=== PATIENT | female | born 2000 | race African-American/Black ===

== ENCOUNTER 2024-03-10 20:29 | Emergency (ER) | payer OTHER, SELFPAY ==
[2024-03-10 20:40] VITALS: BP 120/74; PULSE 75; RESP 16; TEMP 36.4; O2SAT 98
--- NOTE | 2024-03-10 20:48 | CRLHL7_ITS ---
For Patients: As a result of the Century Cures Act, medical imaging exams and procedure reports are released immediately into your electronic medical record. You may view this report before your referring provider. If you have questions, please contact your health care provider. INDICATION: Ankle pain. COMPARISON: None. TECHNIQUE: Right ankle 3 views. FINDINGS: Mild soft tissue swelling about the ankle. No fracture or dislocation. Ankle mortise is intact. Normal visualized mid and hindfoot. Dictated by Vazquez Noguera MD @ 03/10/2024 11:06:54 PM (Electronically Signed)
--- NOTE | 2024-03-10 20:51 | ED.GENADULT ---
HPI - General Adult General Chief complaint: Extremity Pain/Injury, Lower Stated complaint: R ankle pain Time Seen by Provider: 03/10/24 20:33 History of Present Illness HPI narrative: Patient is a 23-year-old woman who uncertain whether she injured her right ankle. He does unfortunately have pain in the right ankle. She has had no instability but has pain with weight-bearing across the extensor tendons of the superior aspect of the ankle. Nose significant bruising but she does have some mild swelling. No other complaints or concerns patient has had no musculoskeletal complaints before and otherwise been in good health with only mild depression. Related Data Home Medications ?Medication ?Instructions ?Recorded ?Confirmed sertraline 150 mg capsule 150 mg PO DAILY 03/10/24 03/10/24 Allergies Allergy/AdvReac Type Severity Reaction Status Date / Time No Known Drug Allergies Allergy Verified 03/10/24 20:46 Review of Systems Status of ROS: Reports: 10 or more systems reviewed and unremarkable except as noted in History and below PFSH PFSH Social History Smoking Status: Never smoker Do you use any of these nicotine containing products: None Second hand tobacco smoke exposure: No How often do you have a drink containing alcohol: monthly or less How often do you have six or more drinks on one occasion: Never AUDIT-C Alcohol total score: 1 Non-prescribed substance use: denies use service: No Exam Narrative: Exam Narrative: EXAM GENERAL: Patient appears comfortable and well. EYES: No scleral icterus. ENT: Tympanic membranes and oropharynx normal. THYROID: no thyroid nodules or thyromegaly. LYMPH: No supraclavicular or cervical lymphadenopathy. SKIN: Visible skin seen during exam normal or with benign process only. EXT: No dependent lower extremity pedal edema. HEART: Regular rate and rhythm with no murmurs, rubs, or gallops. LUNGS: Clear to auscultation bilaterally with no crackles or wheezes. ABD: Soft, non tender, non distended. PSYCH: Good eye contact, speech is not pressured. Const: Vital Signs, click to edit/add: Vital Signs - 24 hr 03/10/24 20:40 Temperature 97.6 F Pulse Rate [Pulse Oximeter] 75 Respiratory Rate 16 Blood Pressure [Ri ght Upper Arm] 120/74 Pulse Oximetry 98 Oxygen Delivery Me thod Room Air Course Course ED Course: Do not see any findings on exam will x-ray her ankle and follow up based on those results. Vital Signs Vital signs: Initial Vital Signs Temperature 97.6 F 03/10/24 20:40 Temperature Source Temporal Artery Scan 03/10/24 20:40 Pulse Rate 75 03/10/24 20:40 Respiratory Rate 16 03/10/24 20:40 Blood Pressure 120/74 03/10/24 20:40 Blood Pressure Mean 89 03/10/24 20:40 Blood Pressure Position Supine 03/10/24 20:40 Pulse Oximetry 98 03/10/24 20:40 Oxygen Delivery Method Room Air 03/10/24 20:40 Vital Signs Temperature 97.6 F 03/10/24 20:40 Pulse Rate 75 03/10/24 20:40 Respiratory Rate 16 03/10/24 20:40 Blood Pressure 120/74 03/10/24 20:40 Pulse Oximetry 98 03/10/24 20:40 Oxygen Delivery Method Room Air 03/10/24 20:40 Temperature 97.6 F 03/10/24 20:40 Pulse Rate 75 03/10/24 20:40 Respiratory Rate 16 03/10/24 20:40 Blood Pressure 120/74 03/10/24 20:40 Pulse Oximetry 98 03/10/24 20:40 Oxygen Delivery Method Room Air 03/10/24 20:40 Medical Decision Making MDM Narrative Medical decision making narrative: Patient presents with largely traumatic right ankle pain. Do not see anything on exam with exception of minimal swelling. I did not see anything on x-ray upon my review. Differential diagnosis includes but not limited to fracture dislocation sprain strain septic joint cellulitis. Discharge Plan Discharge Clinical Impression: Ankle sprain and strain Patient Disposition: Home, Self-Care Condition: Stable Instructions: Ankle Strain (ED) Additional Instructions: Tylenol Motrin Ice Follow-up with your doctor. Activity Level: No Restrictions Discharge Diet: Regular Prescriptions: No Action sertraline 150 mg capsule 150 mg PO DAILY Follow Up/Referrals: Estefanía Reyes, MARTI, ELEMENTARY EDUCATION TEACHER [Primary Care Provider] - Stand Alone Forms: [employer] Info Instructions
== END 2024-03-10 22:15 | disposition home or self-care (01) ==
PROVIDERS: Emergency Provider Internal Medicine; PCP Nurse Practitioner Family
DX: S93.401A Sprain of unspecified ligament of right ankle, initial encounter (principal)
CPT/HCPCS: 73610; 99283

== ENCOUNTER 2025-05-15 21:26 | Emergency (ER) | payer OTHER, SELFPAY ==
--- OUTSIDE RECORDS SUMMARY | 2025-05-15 21:28 | XMS_ITS | Clinical Summary ---
Author Organization [facility] Address [address] [place] [id number] Care Team Providers Care Oracle [employer] Consultant Name Role Phone Clinic, No Pcp Or Primary Care Provider Unavaila ble Allergies Active Allergy Reactions Criticality Noted Date Comments Amoxicillin Anaphylaxis High 06/09/2021 Medications sertraline (ZOLOFT) 25 mg tabletIndication s:Depression, major, single episode, moderate (HC),Generalized anxiety disorder Take 1 Tablet (25 mg) by mouth once daily in the morning. 30 Tablet 1 03/09/2024 Active Active Problems Problem Noted Date Diagnosed Date Pap smear for cervical cancer screening 03/22/20 24 Overview (03/22/2024): 02/2024 NIL Plan: Pap test due in 3 years Hidradenitis suppurativa 03/09/2024 Depression, major, single episode, moderate 02/09 Generalized anxiety disorder 03/09/2024 Immunizations Immunization Administration Dates Next Due DTaP 12/28/2007, 4,05/20/2003,03/14,01/24/2003 HIB-HepB (Comvax) 12/11/2003,03/14/2003,01/25/20 03 Hepatitis A (Peds) 12/26/2014,06/27/2014, 004 Human Papilloma Virus Vaccine 12/26/2014, 014,06/27/2014 Inactivated Polio Vaccine 12/07/2006,08/2003,03/14/2003,01/24 Influenza Virus, Unspecified 08/01/2012 Influenza, IIV3 (Age 6-35 mos) 07/09/2014 Influenza, IIV3 (Age >=3 years) 12/07/2006,08/21 MENINGOCOCCAL VACCINE 2 VIAL 2MO-55YO (MENVEO) 06/27/2014 MMR 12/28/2007,12/11/2003 Meningococcal Vaccine (Menomune) 06/27/2014 Pneumococcal conj 7-Valent (Prevnar 7) 3,03/14/2003,01/24/2003 Tdap 03/09/2024,06/27/2014 Varicella Vaccine 12/28/2007,02/12/2004 Family History Medical History Relation Name Comments Other Maternal Grandmother Prediab etes Other Mother MVA, Hit by a Car COPD Paternal Grandmother Relation Name Status Comments Brother Nancy Father Alive Half-Brother 1 Tabion Alive Half-Brother 2 Dejion Alive Half-Brother 3 Malachea Alive Half-Brother 4 Uriel Alive Half-Sister 1 Analisha Alive Half-Sister 2 Nalea Alive Half-Sister 3 Naveah Alive Maternal Grandmother Alive Mother Paternal Grandfather Paternal Grandmother Alive Social History Tobacco Use Types Packs/Day Years Used Date Smoking Tobacco: Never Passive Smoke Exposure: Never Smokeless Tobacco: Never Tobacco Cessation:Counseling Given: Not Answered Alcohol Use Standard Drinks/Week Comments Not Currently 1 (1 standard drink = 0.6 oz pur e alcohol) occasional PHQ-2 Answer Date Recorded PHQ-2 TOTAL SCORE 3 03/09/2024 Social Connections Answer Date Recorded Do you often feel lonely or isolated from those around you? 0 03/09/2024 Financial Resource Strain Answer Date R ecorded Difficulty of Paying Living Expenses 3 03/09/2024 Difficulty of Paying Living Expenses Not on file 03/09/2024 Food Insecurity Answer Date Recorded Do you worry your food will run out before you are able to buy more? 1 03/09/2024 Transportation Needs Answer Date Record ed Does lack of transportation keep you from medica l appointments? 1 03/09/2024 Does lack of transportation keep you from work, meetings or getting things that you need? 1 03/09/2024 Housing Stability Answer Date Recorded What is your housing situation today? 1 03/09/2024 Utilities Answer Date Recorded Do you have trouble paying f or utilities (for example, heat, electricity, water, phone)? 1 03/09/2024 Comments No Sex and Gender Information Value Date Recorded Sex Assigned at Not on file Legal Sex Female 2:02 PM CDT Gender Identity Not on file Sexual Orientation Not on file Obstetrics History Last Filed Vital Signs Vital Sign Reading Time Taken Comments Blood Pressure 118/58 06/07/2024 11:23 AM CDT Pulse 84 06/07/2024 11:23 AM CDT Temperature 37.2 C (98.9 F) 12/19/2023 1:54 PM CDT Respiratory Rate - - Oxygen Saturation 98% 12/19/2023 1:54 PM CDT Inhaled Oxygen Concentration - - Weight 75.4 kg (166 lb 3.2 oz) 06/07/2024 11:23 AM CDT Height 168.3 cm (5' 6.25) 03/09/2024 2:56 PM CD T Body Mass Index 26.62 03/09/2024 2:56 PM CDT Plan of Treatment Health Maintenance Due Date Last Done Comments COVID-19 vaccine series ( season) 2024 BMI (ht and wt on same day) for age 18+ 03/09/2025 03/09/2024, 06/09/2021 Depression screening for age 12+ 03/11/2025 03/11/2024, 03/09/2024 Chlamydia for age 16-24 06/07/2025 06/07/2024, 03/09 Influenza Vaccine (#1) 2025 4, 08/01/2012, 12/07/2006, Additional history exists Pap test for age 21-65 03/09/2027 03/09/2024 Tetanus booster 03/09/2034 03/09/2024, 06/27/2014 Pneumococcal series for age 6-49 Aged Out 05/20/2003, 03/14/2003, 01/24/2003 No longer eligible based on patient's age to complete this topic Hepatitis B series for 19+ Completed 12/10, 03/14/2003, 01/24/2003 HPV series for age 9-26 Completed 12/27/19 15, 08/13/2014, 06/27/2014 HIV for age 15-65 Completed 03/09/2024 Hepatitis C screening for age 18-79 Completed 03/09/2024 Procedures Procedure Name Priority Date/Time Associated Diagnosis Comments GC CHLAMYDIA TRACH PROBE Routine 06/07/2024 11:34 AM CDT Screen for STD (sexually transmitted disease) Vaginal discharge ENTRY LEVEL MECHANICAL ENGINEER THIN PREP PAP SCREEN IMAGED Routine 03/09/2024 3:40 PM CDT Pap smear for cervical cancer screening ANTI HIV 1/2 Routine 03/09/2024 3:32 PM CDT Screening for HIV without presence of risk factors ANTI HCV Routine 03/09/2024 3:32 PM CDT Encounter for hepatitis C screening test for low risk patient from Last 3 Months or Most Recently Relevant to Health Maintenance Results * GC CHLAMYDIA TRACH PROBE (06/07/2024 11:34 AM CDT) CHLAMYDIA PROBE Negative 12:36 AM CDT [facility] N GONORRHOEAE PROBE Negative 06/08/2024 12:36 AM CDT [facility] Other VAGINAL SWAB / Unknown Non-Blood / Unknown 06/07/2024 11:34 AM CDT 06/07/2024 11:34 AM CDT us Estefanía Reyes NP MICROBIOLOGY Final Res ult [facility] [address] [place] [address], * ENTRY LEVEL MECHANICAL ENGINEER THIN PREP PAP SCREEN IMAGED (03/09/2024 3:40 PM CDT) Case Report Gynecologic Cytology Report Case: [id number] Authorizing Provider: Estefanía Reyes NP Collected: 03/09/2024 1540 Ordering Location: [facility] Received: 03/09/2024 1540 Clinic First Screen: Sean Jung Specimen: ENTRY LEVEL MECHANICAL ENGINEER ThinPrep Vial Screening, Cervical 03/21/2024 4:27 PM CDT [facility] INTERPRETATION/ RESULT NEGATIVE FOR INTRAEPITHELIAL LESION OR MALIGNANCY (NIL) (none) 03/21/2024 4:27 PM CDT [facility] at 1627 CDT ORGANISM(S) Fungal organisms morphologically consistent with Alejandra species 03/21/2024 4:27 PM CDT [facility] SPECIMEN ADEQUACY Satisfactory for evaluation Endocervical component present 03/21/2024 4:27 PM CDT [facility] Date of LMP see Epic 03/21/2024 4:27 PM CDT [facility] Last Pap Date First Pap 03/21/2024 4:27 PM CDT [facility] Last Pap Result First Pap/Unknown 4:27 PM CDT [facility] Abnormal Pap or Arimo Bx in last 5 years No 03/21/2024 4:27 PM CDT [facility] Menstrual Status Regular Periods 03/21/2024 4:27 PM CDT [facility] Arimo Bx Done Today No 03/21/2024 4:27 PM CDT [facility] Additional Information None given 03/21/2024 4:27 PM CDT [facility] Comment: Cytology is screened at [facility], Central Laboratory - [address], [place] [address] and [facility] - [address], [place] [address] [facility] - [address] [place] [address] Interpreted at [facility] - [address], [place] [address] Automated Review Successful 03/21/2024 4:27 PM CDT [facility] Comment:Specimen processed s uccessfully by automated lumber sales supervisor device, ThinPrep Imaging System, [employer] Note The pap test is a screening technique, not a diagnostic procedure. It is used primarily to screen for squamous cancers and precursor lesions. Published studies have shown that it is subject to both false negative and false positive results. The pap test should not be used as the sole means to diagnose or exclude pre-malignant and malignant lesions. 03/21/2024 4:27 PM CDT [facility] Other (Cervical) Non-Blood / Unknown 03/09/2024 3:40 PM CDT 03/09/2024 3:40 PM CDT Estefanía Reyes NP PATHOLOGY/CYTOLOGY Final Result Performing Organization Address [facility] Co de Phone Number [facility] [address] [place] [id number], [place] * ANTI HCV (03/09/2024 3:32 PM CDT) Pathologist [facility] HEPATITIS C ANTIBODY Non-Reacti ve Non-React emma 03/10/2024 1:19 AM CDT [facility] Comment:Please note, per www .CDC.gov: If a patient is known to be at high risk of HCV infection, or is symptomatic, and the physician's suspicion of HCV infection is high, HCV RNA testing is often employed and is of diagnostic value, even after an initial negative anti-HCV test result. Blood BLOOD SPECIMEN / Unknown Venipuncture / Unknown 03/09/2024 3:32 PM CDT 03/09/2024 3:32 PM CDT Estefanía Reyes NP SEND OUTS Final Res ult Performing Organization Address [facility]/ZIP Co de Phone Number [facility] [address] [place] [address], [place] * ANTI HIV 1/2 (03/09/2024 3:32 PM CDT) Pathologist [facility] HIV-1/HIV-2 SCREEN Non-Reacti ve Non-Reacti ve 03/09/2024 11:39 PM CDT [facility] Comment:HIV-1 p24 and HIV-1/ HIV-2 Ab Not Detected. Blood BLOOD SPECIMEN / Unknown Venipuncture / Unknown 03/09/2024 3:32 PM CDT 03/09/2024 3:32 PM CDT us Estefanía Reyes SOCIAL DIRECTOR SEND OUTS Final Res ult [facility] [address] [place] [address], [place] from Last 3 Months or Most Recently Relevant to Health Maintenance Care Teams [employer] Consultant Relationship Specialty Start Date End Date Clinic, No Pcp Or . PCP - General 06/09/21
--- OUTSIDE RECORDS SUMMARY | 2025-05-15 21:28 | XMS_ITS | Clinical Summary ---
Author Organization [facility] Address [address], [place] [address] Care Team Providers Care Landscape Specialist Name Role Phone Lynsey Hong MD Primary Care Provider [phone] Source Comments You are receiving this document as you are listed as the primary care provider,follow-up provider, or the patient has been referred to you for consultation.This is in compliance with the Medicare andMedicaid EHR Incentive Program,which states Providers who transition their patient to another setting of careor provider of care or refers their patient to another provider of care shouldprovide summary care record for each transition of care or referral. [facility] Allergies Active Allergy Reactions Criticality Noted Date Comments Amoxicillin Edema,generalized 09/17/2024 Medications * This document contains information received from the source organization and may not represent a complete record from that organization. acetaminophen (AKA TYLENOL) 160 MG/5ML liquidIndication s:Pain Take 15.5 mL by mouth every 4 hours as needed for Fever or Pain. Take 3 tsp every 4 hours. Indications : Pain 120 mL 2 06/07/2013 Active Active Problems Problem Noted Date Diagnosed Date Tinea corporis 01/26/2012 Sensorineural hearing loss, bilateral 08/18/2009 Esotropia 12/28/2007 Resolved Problems Problem Noted Date Diagnosed Date Resolved Date Strabismus 12/28/2007 12/28/2007 Speech disturbance 12/28/2007 0 Immunizations Immunization Administration Dates Next Due 4vHPV (Gardasil) 12/26/2014,08/13/2014, 4 DTaP 12/28/2007, 4,05/20/2003,2002,01/24/2003 Flu Vac (3+ yrs) 12/07/2006 Flu Vac (6-35 mo) 08/21/2003 HepA Ped/Adol (1-18 yrs) 12/26/2014,06/27/2004 Hib/HBV 12/11/2003,03/14/2003,01/24/2003 IPV (Polio) 12/07/2006, 3,03/14/2003,2002 Influenza LAIV3 2-49 years (Flumist) 08/01/2012 Influenza, Unspecified Formulation 08/01/2012 MCV4 (Menactra) 06/27/2014 MMR 12/28/2007,12/11/2003 Pneumococcal 7, PED 05/20/2003,03/14/2003,2002 Tdap 06/27/2014 Varicella 12/28/2007,02/12/2004 Family History * Patient is adopted Medical History Relation Name Comments Other Negative Family History Social History Tobacco Use Types Packs/Day Years Used Date Smoking Tobacco: Some Days Cigarettes Smokeless Tobacco: Never Tobacco Cessation:Ready to Q uit: Not Asked; Counseling Given: Not Answered Alcohol Use Standard Drinks/Week Comments Not Asked 0 (1 standard drink = 0.6 oz pur e alcohol) Comments No Sex and Gender Information Value Date Recorded Sex Assigned at Not on file Legal Sex Female 5:25 AM CDT Gender Identity Not on file Sexual Orientation Not on file Last Filed Vital Signs Vital Sign Reading Time Taken Comments Blood Pressure 116/68 09/17/2024 2:08 PM BRANCH ASSISTANT Pulse 80 09/17/2024 2:08 PM BRANCH ASSISTANT Temperature 36.7 C (98.1 F) 09/17/2024 2:08 PM BRANCH ASSISTANT Respiratory Rate 16 09/17/2024 2:08 PM BRANCH ASSISTANT Oxygen Saturation 100% 09/17/2024 2:08 PM BRANCH ASSISTANT Inhaled Oxygen Concentration - - Weight 81.6 kg (180 lb) 12/18/2015 11:28 AM BRANCH ASSISTANT Height 162.6 cm (5' 4) 12/18/2015 11:28 AM BRANCH ASSISTANT Body Mass Index 30.9 12/18/2015 11:28 AM BRANCH ASSISTANT Plan of Treatment Health Maintenance Due Date Last Done Comments Cervical Cancer Screening Due 2002 Chlamydia 2002 Hep C Screening (Preventive Services) 2002 MenB Immunization Discussion 2002 HIV Screening (Preventive Services) 2018 Adult Preventive Visit 2020 2, 12/28/2007, 12/07/2006, Additional history exists Pneumococcal Vaccine (1 of 2 - PCV) 2021 05/20/2003, 03/14/2003, 01/24/2003 COVID-19 Vaccine (1 - season) 2024 Influenza Vaccine (#1) 2025 4, 08/01/2012, 08/01/2012, Additional history exists DTaP/Tdap/Td Vaccine (8 - Tdap) 03/09/2034 03/09/2024, 06/27/2014, 12/28/2007, Additional history exists Zoster/Shingles Vaccine (1 of 2) 2052 HepB Vaccine Completed 12/11/2003, 02/2003, 01/24/2003 Hib Vaccine Completed 12/11/2003, 02/2003, 01/24/2003 IPV (Polio) Vaccine Completed 12/07/2006, 05/20/2003, 03/14/2003, Additional history exists Varicella Vaccine Completed 12/28/2007, 02/12/2004 MCV4 Vaccine Aged Out 06/27/2014 No longer eligi ble based on patient's age to complete this topic HPV Vaccine Completed 12/26/2014, 01/2014, 06/27/2014 HepA Vaccine Completed 12/26/2014, 06/10, 06/27/2004 [place] [id number] CARE PMAP Care Teams Landscape Specialist Relationship Specialty Start Date End Date Lynsey Hong MD [address] [place] [id number] PCP - General Pediatric Medicine 05/15/13
--- OUTSIDE RECORDS SUMMARY | 2025-05-15 21:28 | XMS_ITS | Encounter Summary ---
Author Organization [facility] Address [address] [place] [address] Care Team Providers Care Evp Marketing Name Role Phone Lynsey Hong MD Primary Care Provider [phone] Encounter Details Date Type Department Care Team (Late st Contact Info) Description 01/14/2014 Scanned History External to External, Provider No address [address] [place] Social History Tobacco Use Types Packs/Day Years Used Date Smoking Tobacco: Never Alcohol Use Standard Drinks/Week Comments Not Asked 0 (1 standard drink = 0.6 oz pur e alcohol) Comments Unknown Sex and Gender Information Value Date Recorded Sex Assigned at Not on file Legal Sex Female 5:25 AM CDT Gender Identity Not on file Sexual Orientation Not on file documented as of this encounter Progress Notes * External, Provider - 01/14/2014 12:00 AM CDT documented in this encounter Plan of Treatment Not on file documented as of this encounter Visit Diagnoses Not on filedocumented in this encounter Care Teams Evp Marketing Relationship Specialty Start Date End Date Lynsey Hong MD [address] [place] [address] PCP - General Pediatric Medicine 05/15/13 documented as of this encounter
--- OUTSIDE RECORDS SUMMARY | 2025-05-15 21:28 | XMS_ITS | Clinical Summary ---
Author Organization [facility] Address [address] [place] [address] Care Team Providers Care Oven Laborer Name Role Phone Shankar, Milady Ramey Primary Care Provider Allergies Active Allergy Reactions Criticality Noted Date Comments Amoxicillin Shortness Of Breath High 06/19/2021 Medications No known medications Social History Tobacco Use Types Packs/Day Years Used Date Smoking Tobacco: Never Assessed Adolescent Education Answer Date Record ed Getting School Help Needed Not on file 07/02 Comments No Sex and Gender Information Value Date Recorded Sex Assigned at Not on file Legal Sex Female 9:33 AM CDT Gender Identity Not on file Sexual Orientation Not on file Last Filed Vital Signs Vital Sign Reading Time Taken Comments Blood Pressure 118/75 03/08/2024 10:57 AM CDT Pulse 69 03/08/2024 10:57 AM CDT Temperature 36.6 C (97.9 F) 03/08/2024 10:57 AM CDT Respiratory Rate 20 06/19/2021 9:47 PM CDT Oxygen Saturation 98% 03/08/2024 10:57 AM CDT Inhaled Oxygen Concentration - - Weight - - Height - - Body Mass Index - - Plan of Treatment Health Maintenance Due Date Last Done Comments ADVANCE CARE PLANNING 2002 ANNUAL REVIEW OF HM ORDERS 2002 CHLAMYDIA SCREENING 2002 YEARLY PREVENTIVE VISIT 2005 HIV SCREENING 2017 MENINGITIS B VACCINE (1 of 2 - Standard) 2018 HEPATITIS C SCREENING 2020 PAP 2023 COVID-19 VACCINE ( season) 2024 DTAP/TDAP/TD VACCINE (7 - Td or Tdap) 06/27/2024 06/27/2014, 12/28/2007, 02/12/2004, Additional history exists PHQ-2 (once per calendar year) 2024 INFLUENZA VACCINE (#1) 2025 4, 08/01/2012, 12/07/2006, Additional history exists ZOSTER VACCINE (1 of 2) 2052 PNEUMOCOCCAL VACCINE: PEDIATRICS (0 to 5 YEARS) AND AT-RISK PATIENTS (6 to 49 YEARS) Aged Out 05/20/2003, 03/14/2003, 01/24/2003 No longer eligible based on patient's age to complete this topic HEPATITIS B VACCINE Completed 12/11/2003, 03/14/2003, 01/24/2003 MENINGITIS VACCINE Aged Out 06/27/2014 No longer eligible based on patient's age to complete this topic HPV VACCINE Completed 12/26/2014, 11/0 01/2014, 06/27/2014 Care Teams Oven Laborer Relationship Specialty Start Date End Date [facility], Milady [place] [address] [place] [address] PCP - General 06/20/21
--- OUTSIDE RECORDS SUMMARY | 2025-05-15 21:28 | XMS_ITS | Encounter Summary ---
Author Organization [facility] Address [address] [place] [address] Care Team Providers Care Green End Man Name Role Phone Lynsey Hong MD Primary Care Provider [phone] Encounter Details Date Type Department Care Team (Late st Contact Info) Description 2002 Hospital External to Unknown, Physician [address] [place] [address] /MATERNAL ASSESSMENT Social History Tobacco Use Types Packs/Day Years Used Date Smoking Tobacco: Some Days Cigarettes Smokeless Tobacco: Never Alcohol Use Standard Drinks/Week Comments Not Asked 0 (1 standard drink = 0.6 oz pur e alcohol) Comments No Sex and Gender Information Value Date Recorded Sex Assigned at Not on file Legal Sex Female 5:25 AM CDT Gender Identity Not on file Sexual Orientation Not on file documented as of this encounter Progress Notes * Unknown, Physician - 2002 12:00 AM C APPLICATION DEVELOPER documented in this encounter Plan of Treatment Not on file documented as of this encounter Visit Diagnoses Not on filedocumented in this encounter Care Teams Green End Man Relationship Specialty Start Date End Date Lynsey Hong MD [address] [place] [address] PCP - General Pediatric Medicine 05/15/13 documented as of this encounter
[2025-05-15 21:43] VITALS: BP 116/77; PULSE 86; RESP 18; TEMP 36.7; O2SAT 99; BMI 27.0
[2025-05-15 23:15] LABS: Appearance Urine Cloudy (Clear)
[2025-05-15 23:27] LABS: Ur HCG Qualitative* Negative (Negative)
--- NOTE | 2025-05-15 23:40 | ED_ITS ---
HPI - General Adult General Time Seen by Provider: 23:40 Date Seen: 05/15/25 Chief complaint: Urogenital Problems, Female Stated complaint: pain in back & pelvis Time Seen by Provider: 05/15/25 23:40 Source: patient and family (Mother) Mode of arrival: ambulatory History of Present Illness HPI narrative: Nubia is a 24-year-old female who presents the emergency department for evaluation of pelvic pain. Patient states that she typically gets her menstrual cycle every month and is usually around the 8th or 9th of every month. Patient states that she developed some vaginal bleeding today which she describes as a light bleeding along with some lower abdominal/pelvic pain which she describes as an intermittent cramping pain that lasts for approximately 1-3 minutes and goes away on its own and then returns. Patient also reports some discomfort in her low back as well as breast tenderness. Patient denies any other abdominal pain, fever, chills, chest pain, shortness of breath, nausea, vomiting. Denies any dysuria. Patient states that typically she has some intermittent cramping sensation with her menstrual cycles but it is not severe and only last approximately 30 seconds and comes and goes. Patient took ibuprofen around 5:00 p.m. with no improvement of symptoms. Patient wants to make sure she is not and does not have an infection. No other complaints. Related Data Home Medications ?Medication ?Instructions ?Recorded ?Confirmed sertraline 150 mg capsule 150 mg PO DAILY 03/10/2411/02 Allergies Allergy/AdvReac Type Severity Reaction Status Date / Time amoxicillin AdvReac Severe throat Verified 05/15/25 21:49 closing Review of Systems Narrative: Past medical history, past surgical history, medications, allergies, family history, and social history were reviewed with the patient. No additional pertinent items. A medically appropriate review of systems was performed with pertinent positives and negatives noted in HPI, all other systems negative. [facility] Social History Smoking Status: Never smoker Do you use any of these nicotine containing products: None Second hand tobacco smoke exposure: No How often do you have a drink containing alcohol: monthly or less How often do you have six or more drinks on one occasion: Never AUDIT-C Alcohol total score: 1 Non-prescribed substance use: denies use service: No Exam Narrative: Exam Narrative: General: Afebrile, no acute distress HEENT: Normocephalic, atraumatic, conjunctiva normal. MMM Neck: non-tender, supple Cardio: regular rate. regular rhythm Resp: Normal work of breathing, no respiratory distress, lungs clear bilaterally, no wheezing, rhonchi, rales Chest/Back: no visual signs of trauma, no midline tenderness, no CVA tenderness Abdomen: soft, non distension, no tenderness, no peritoneal signs : Normal external genitalia, vaginal canal with small amount of bloody discharge, no lesions, no trauma, no CMT, no adnexal tenderness Neuro: alert and fully oriented. CN II-XII grossly intact. Grossly normal strength and sensation in all extremities. MSK: no deformities. Normal range of motion Integumentary/Skin: no rash visualized, normal color Psych: normal affect, normal behavior Const: Vital Signs, click to edit/add: Vital Signs - 24 hr 05/15/25 21:43 Temperature 98.0 F Pulse Rate [Right Pulse Oximeter] 86 Respiratory Rate 18 Blood Pressure [Ri ght Upper Arm] 116/77 Pulse Oximetry 99 Oxygen Delivery Me thod Room Air Course Vital Signs Vital signs: Initial Vital Signs Temperature 98.0 F 05/15/25 21:43 Temperature Source Temporal Artery Scan 05/15/25 21:43 Pulse Rate 86 05/15/25 21:43 Pulse Rhythm Regular 05/15/25 21:43 Respiratory Rate 18 05/15/25 21:43 Blood Pressure 116/77 05/15/25 21:43 Blood Pressure Mean 90 05/15/25 21:43 Blood Pressure Position Sitting 05/15/25 21:43 Pulse Oximetry 99 05/15/25 21:43 Oxygen Delivery Method Room Air 05/15/25 21:43 Vital Signs Temperature 98.0 F 05/15/25 21:43 Pulse Rate 86 05/15/25 21:43 Respiratory Rate 18 05/15/25 21:43 Blood Pressure 116/77 05/15/25 21:43 Pulse Oximetry 99 05/15/25 21:43 Oxygen Delivery Method Room Air 05/15/25 21:43 Temperature 98.0 F 05/15/25 21:43 Pulse Rate 86 05/15/25 21:43 Respiratory Rate 18 05/15/25 21:43 Blood Pressure 116/77 05/15/25 21:43 Pulse Oximetry 99 05/15/25 21:43 Oxygen Delivery Method Room Air 05/15/25 21:43 Medical Decision Making MDM Narrative Medical decision making narrative: Nubia is a 24-year-old female who presents the emergency department for evaluation of pelvic pain. Upon arrival patient is nontoxic appearing, afebril e, in distress secondary to pain. Differential diagnosis includes but is not limited to versus ectopic versus cystitis versus dysmenorrhea versus infectious among others. Upon arrival patient was treated with Tylenol, declined anything else for pain. Urine negative. Urinalysis with blood, small amount of white blood cells, squamous cells, negative leukocyte esterase, negative nitrates. Patient denies any dysuria so at this time will hold off on treatment and will follow up culture. Patient agrees with this plan. GC chlamydia culture sent. Wet prep positive for clue cells. Discussed with patient will treat with a 7 day course of Flagyl. GC/chlamydia negative. On re-evaluation patient resting comfortably, no distress. Patient requesting discharge which I think is reasonable. I suspect patient's symptoms are most likely secondary to her menstrual cycle, will treat for bacterial vaginosis. Giving diffuse/bilateral symptoms, no localizing symptoms to 1 side, no adnexal tenderness low suspicious for ovarian cyst/torsion. Patient is agreeable to discharge home with close outpatient follow-up. Recommend further evaluation with pelvic ultrasound if ongoing symptoms and strict return precautions discussed if severe pain, persistent vomiting, worsening symptoms. Patient and mother understand agrees with discharge. Lab Data Labs: Lab Results 05/15/25 05/16/25 Range/Units 23:10 00:10 Urine Color Yellow (Yellow) Urine Appearance Cloudy A (Clear) Urine pH 5.5 (5.0-8.5) Ur Specific [place] >= 1.030 (1.000-1.030) Urine Protein 1+ A (Negative) Urine Glucose (UA) Negative (Negative) Urine Ketones Negative (Negative) Urine Blood 3+ A (Negative) Urine Nitrite Negative (Negative) Urine Bilirubin Negative (Negative) Urine Urobilinogen 0.2 (0.2-1.0) Ur Leukocyte Esterase Negative (Negative) Urine RBC 0-2 (0-2) Urine WBC 5-10 A (0-5) Ur Squamous Epith Cells Moderate A (None-Few) Amorphous Sediment Few A (None) Urine Bacteria Moderate A (None) Urine Mucus Many A (None) Urine HCG, Qual Negative (Negative) Vaginal Trichomonas No Trichomonas Seen (None Seen) Vaginal Yeast No Yeast Seen (None Seen) Vaginal Clue Cells <20% Clue Cells Seen A (None Seen) C.trachomatis Ampl DNA NOT DETECTED (No Detected) N.gonorrhoeae Ampl DNA NOT DETECTED (No Detected) Discharge Plan Discharge Clinical Impression: Pelvic pain, Bacterial vaginosis Patient Disposition: Home, Self-Care Condition: Stable Additional Instructions: Please follow-up with your primary care provider or barn and property manager in the next 3-5 days for further evaluation and follow-up. Please call to schedule appointment. We recommend further evaluation with a pelvic ultrasound if you continue to experience pain. Please use heating pad for comfort. Alternate taking Tylenol 1000 mg and ibuprofen 600 mg every 6 hours as needed for pain. If you alternate these medications you should take something every 3 hours. Please take antibiotics twice daily as directed. Please make sure you do not drink any alcohol while on these medications. Return to the emergency department if you develops severe pain, high fever, persistent vomiting, or any worsening symptoms. It was a pleasure taking care of you today. We hope you feel better soon. Prescriptions: No Action sertraline 150 mg capsule 150 mg PO DAILY Follow Up/Referrals: Estefanía Reyes, MARTI, ACTIVITIES COUNSELOR [Primary Care Provider, Family Practice] Stand Alone Forms: [facility] Inst[facility]
[2025-05-16 00:21] LABS: Trichomonas No Trichomonas Seen (None Seen)
--- OUTSIDE RECORDS SUMMARY | 2025-05-16 00:28 | XMS_ITS | Clinical Summary ---
Author Organization [facility] Address [address], [place] [address] Care Team Providers Care Human Capital Manager Name Role Phone Lynsey Hong MD Primary Care Provider [phone] Source Comments You are receiving this document [...] for each transition of care or referral. [facility] Allergies Active Allergy Reactions Criticality Noted Date [...] Comments Blood Pressure 116/68 09/17/2024 2:08 PM [employer]ARM[employer] Pulse 80 09/17/2024 2:08 PM [employer] Temperature 36.7 C (98.1 F) 09/17/2024 2:08 PM [employer] Respiratory Rate 16 09/17/2024 2:08 PM [employer] Oxygen Saturation 100% 09/17/2024 2:08 PM [employer] Inhaled Oxygen Concentration - - Weight 81.6 kg (180 lb) 12/18/2015 11:28 AM [employer] Height 162.6 cm (5' 4) 12/18/2015 11:28 AM [employer] Body Mass Index 30.9 12/18/2015 11:28 AM [employer] Plan of Treatment Health Maintenance Due Date [...] Completed 12/26/2014, 06/10, 06/27/2004 [place] [phone] CARE PMAP Care Teams Human Capital Manager Relationship Specialty Start Date End Date Lynsey Hong MD [address] [place] [id number] PCP - General Pediatric Medicine 05/15/13
--- OUTSIDE RECORDS SUMMARY | 2025-05-16 00:28 | XMS_ITS | Encounter Summary ---
Author Organization [facility] Address [address] [place] [address] Care Team Providers Care Clinical Documentation Spec Name Role Phone Lynsey Hong MD Primary Care Provider [phone] Encounter Details Date Type Department Care Team (Late st Contact Info) Description 2002 Hospital External to Unknown, Physician [address] [place] [address] /MATERNAL ASSESSMENT Social History Tobacco Use Types [...] * Unknown, Physician - 2002 12:00 AM DIRECTOR OF PRODUCT DESIGN documented in this encounter Plan of Treatment Not on file documented as of this encounter Visit Diagnoses Not on filedocumented in this encounter Care Teams Clinical Documentation Spec Relationship Specialty Start Date End Date Lynsey Hong MD [address] [place] [address] PCP - General Pediatric Medicine 05/15/13 documented as of this encounter
--- OUTSIDE RECORDS SUMMARY | 2025-05-16 00:28 | XMS_ITS | Clinical Summary ---
Author Organization [facility] Address [address] [place] [address] Care Team Providers Care Sky Diver Name Role Phone Shankar, Milady Ramey Primary [...] Completed 12/26/2014, 11/0 01/2014, 06/27/2014 Care Teams Sky Diver Relationship Specialty Start Date End Date [facility], [place]ady [place] [address] [place] [address] PCP - General 06/20/21
--- OUTSIDE RECORDS SUMMARY | 2025-05-16 00:28 | XMS_ITS | Encounter Summary ---
Author Organization [facility] Address [address] [place] [address] Care Team Providers Care Counting Machine Operator Name Role Phone Lynsey Hong MD Primary Care Provider [phone] Encounter Details Date Type Department Care Team (Late st Contact Info) Description 01/14/2014 Scanned History External to External, Provider No address [address] [place] Social History Tobacco Use Types [...] on filedocumented in this encounter Care Teams Counting Machine Operator Relationship Specialty Start Date End Date Lynsey Hong MD [address] [place] [address] PCP - General Pediatric Medicine 05/15/13 documented as of this encounter
--- OUTSIDE RECORDS SUMMARY | 2025-05-16 00:28 | XMS_ITS | Clinical Summary ---
Author Organization [facility] Address [address] [place] [address] Care Team Providers Care Valet Parking Attendant Name Role Phone Clinic, No Pcp Or [...] for STD (sexually transmitted disease) Vaginal discharge COTTRELL OPERATOR THIN PREP PAP SCREEN IMAGED Routine 03/09/2024 [...] CDT) CHLAMYDIA PROBE Negative 12:36 AM CDT [facility] N GONORRHOEAE PROBE Negative 06/08/2024 12:36 AM CDT [facility] Other VAGINAL SWAB / Unknown Non-Blood / Unknown 06/07/2024 11:34 AM CDT 06/07/2024 11:34 AM CDT us Estefanía Reyes NP MICROBIOLOGY Final Res ult [facility] [address] [place] [address], * COTTRELL OPERATOR THIN PREP PAP SCREEN IMAGED (03/09/2024 3:40 PM CDT) Case Report Gynecologic Cytology Report Case: [id number] Authorizing Provider: Estefanía Reyes NP Collected: 03/09/2024 1540 Ordering Location: [facility] Ed Received: 03/09/2024 1540 Clinic First Screen: Sean Jung Specimen: COTTRELL OPERATOR ThinPrep Vial Screening, Cervical 03/21/2024 4:27 PM CDT [facility] INTERPRETATION/ RESULT NEGATIVE FOR INTRAEPITHELIAL LESION OR MALIGNANCY (NIL) (none) 03/21/2024 4:27 PM CDT [facility] at 1627 CDT ORGANISM(S) Fungal organisms morphologically consistent with Alejandra species 03/21/2024 4:27 PM CDT [facility] SPECIMEN ADEQUACY Satisfactory for evaluation Endocervical component present 03/21/2024 4:27 PM CDT [facility] Date of LMP see Epic 03/21/2024 4:27 PM CDT [facility] Last Pap Date First Pap 03/21/2024 4:27 PM CDT [facility] Last Pap Result First Pap/Unknown 4:27 PM CDT [facility] Abnormal Pap or [place] Bx in last 5 years No 03/21/2024 4:27 PM CDT [facility] Menstrual Status Regular Periods 03/21/2024 4:27 PM CDT [facility] [place] Bx Done Today No 03/21/2024 4:27 PM CDT [facility] Additional Information None given 03/21/2024 4:27 PM CDT [facility] Comment: Cytology is screened at [facility], [facility] - [address], [place] [address] and [facility] - [address], [place] [address] and [facility] - [address] [place] [address] Interpreted at [facility] - [address], [place] [address] Automated Review Successful 03/21/2024 4:27 PM CDT [facility] Comment:Specimen processed s uccessfully by automated safety and skill based pay manager device, ThinPrep Imaging System, [employer] Note The pap test is a [...] and malignant lesions. 03/21/2024 4:27 PM CDT [facility] Other (Cervical) Non-Blood / Unknown 03/09/2024 3:40 PM CDT 03/09/2024 3:40 PM CDT Estefanía Reyes NP PATHOLOGY/CYTOLOGY Final Result Performing Organization Address [facility] Co de Phone Number [facility] [address] [place] [address], [place] * ANTI HCV (03/09/2024 3:32 PM CDT) Pathologist [facility] HEPATITIS C ANTIBODY Non-Reacti ve Non-React emma 03/10/2024 1:19 AM CDT [facility] Comment:Please note, per www .CDC.gov: [...] OUTS Final Res ult Performing Organization Address [facility]/ZIP Co de Phone Number [facility] [address] [place] [address], [place] * ANTI HIV 1/2 (03/09/2024 3:32 PM CDT) Pathologist [facility] HIV-1/HIV-2 SCREEN Non-Reacti ve Non-Reacti ve 03/09/2024 11:39 PM CDT [facility] Comment:HIV-1 p24 and HIV-1/ HIV-2 Ab Not Detected. Blood BLOOD SPECIMEN / Unknown Venipuncture / Unknown 03/09/2024 3:32 PM CDT 03/09/2024 3:32 PM CDT us Estefanía Reyes COMMERCIAL TRAILER TRUCK DRIVER SEND OUTS Final Res ult [facility] [address] [place] [address], [place] from Last 3 Months or Most Recently Relevant to Health Maintenance Care Teams Valet Parking Attendant Relationship Specialty Start Date End Date Clinic, No Pcp Or . PCP - General 06/09/21
[2025-05-16 01:44] LABS: Chlamydia DNA Amplified* NOT DETECTED (No Detected); GC DNA Amplified* NOT DETECTED (No Detected)
== END 2025-05-16 02:10 | disposition home or self-care (01) ==
PROVIDERS: Emergency Provider Emergency Medicine; PCP Nurse Practitioner Family
DX: R10.2 Pelvic and perineal pain (principal); N76.0 Acute vaginitis
CPT/HCPCS: 81001; 81003; 81025; 87086; 87210; 87491; 87591; 99283; 99285; A9270

== ENCOUNTER 2025-08-20 09:44 | Emergency (ER) | payer MEDICAID, SELFPAY ==
--- OUTSIDE RECORDS SUMMARY | 2025-08-20 09:46 | XMS_ITS | Clinical Summary ---
Author Organization [facility] Address [address], [place] [address] Care Team Providers Care Nailer Machine Name Role Phone Lynsey Hong MD Primary Care Provider [phone] Source Comments You are receiving this document as you are listed as the primary care provider,follow-up provider, or the patient has been referred to you for consultation.This is in compliance with the Medicare and[facility] Hospital[facility] EHR Incentive Program,which states Providers who transition their patient to another setting of careor provider of care or refers their patient to another provider of care shouldprovide summary care record for each transition of care or referral. [facility] Allerg[facility] Active Allergy Reactions Criticality Noted Date Comments Amoxicillin Edema,generalized 09/17/2024 Medications acetaminophen (AKA TYLENOL) 160 MG/5ML liquidIndication s:Pain [...] Comments Blood Pressure 116/68 09/17/2024 2:08 PM COLLEGE OR UNIVERSITY REGISTRAR Pulse 80 09/17/2024 2:08 PM COLLEGE OR UNIVERSITY REGISTRAR Temperature 36.7 C (98.1 F) 09/17/2024 2:08 PM COLLEGE OR UNIVERSITY REGISTRAR Respiratory Rate 16 09/17/2024 2:08 PM COLLEGE OR UNIVERSITY REGISTRAR Oxygen Saturation 100% 09/17/2024 2:08 PM COLLEGE OR UNIVERSITY REGISTRAR Inhaled Oxygen Concentration - - Weight 81.6 kg (180 lb) 12/18/2015 11:28 AM COLLEGE OR UNIVERSITY REGISTRAR Height 162.6 cm (5' 4) 12/18/2015 11:28 AM COLLEGE OR UNIVERSITY REGISTRAR Body Mass Index 30.9 12/18/2015 11:28 AM COLLEGE OR UNIVERSITY REGISTRAR Plan of Treatment Health Maintenance Due Date Last Done Comments Cervical Cancer Screening Due 2002 Chlamydia 2002 Hep C Screening (Preventive Services) 2002 MenB Immunization Discussion 2002 HIV Screening (Preventive Services) 2018 Adult Preventive Visit 2020 2, 12/28/2007, 12/07/2006, Additional history exists Pneumococcal Vaccine (1 of 2 - PCV) 2021 05/20/2003, 03/14/2003, 01/24/2003 COVID-19 Vaccine (1 - season) 2025 Influenza Vaccine (#1) 2025 4, 08/01/2012, 08/01/2012, [...] HepA Vaccine Completed 12/26/2014, 06/10, 06/27/2004 Insurance CARE PMAP Care Teams Nailer Machine Relationship Specialty Start Date End Date Lynsey Hong MD [address] [place] [address] PCP - General Pediatric Medicine 05/15/13
--- OUTSIDE RECORDS SUMMARY | 2025-08-20 09:47 | XMS_ITS | Clinical Summary ---
Author Organization [facility] Address [address] [place] [address] Care Team Providers Care Patternmaker Hand Name Role Phone Clinic, No Pcp Or [...] Health Maintenance Due Date Last Done Comments BMI (ht and wt on same day) for age 18+ 03/09/2025 03/09/2024, 06/09/2021 Depression screening for age 12+ 03/11/2025 03/11/2024, 03/09/2024 Chlamydia for age 16-24 06/07/2025 06/07/2024, 03/09 Influenza Vaccine (#1) 2025 4, 08/01/2012, 12/07/2006, Additional history exists Pap test for age 21-65 03/09/2027 03/09/2024 Tetanus booster 03/09/2034 03/09/2024, 06/27/2014 RSV vaccine for adults or (1 - 1-dose 75+ series) 2077 Pneumococcal series for age 6-49 Aged Out 05/20/2003, 03/14/2003, 01/24/2003 No longer eligible based on patient's age to complete this topic Hepatitis B series for 19+ Completed 12/10, 03/14/2003, 01/24/2003 HPV series for age 9-45 Completed 12/27/19 15, 08/13/2014, 06/27/2014 HIV for age 15-65 Completed 03/09/2024 Hepatitis C screening for age 18-79 Completed 03/09/2024 Procedures Procedure Name Priority Date/Time Associated Diagnosis Comments GC CHLAMYDIA TRACH PROBE Routine 06/07/2024 11:34 AM CDT Screen for STD (sexually transmitted disease) Vaginal discharge MEDICAL PHYSICS TEACHER THIN PREP PAP SCREEN IMAGED Routine 03/09/2024 [...] CDT) CHLAMYDIA PROBE Negative 12:36 AM CDT [facility] N GONORRHOEAE PROBE Negative 06/08/2024 12:36 AM CDT [facility] Other VAGINAL SWAB / Unknown Non-Blood / Unknown 06/07/2024 11:34 AM CDT 06/07/2024 11:34 AM CDT Estefanía Reyes NP MICROBIOLOGY Final Res ult [facility] [address] [place] [address], * MEDICAL PHYSICS TEACHER THIN PREP PAP SCREEN IMAGED (03/09/2024 3:40 PM CDT) Case Report Gynecologic Cytology Report Case: [id number] Authorizing Provider: Estefanía Reyes NP Collected: 03/09/2024 1540 Ordering Location: [facility] Received: 03/09/2024 1540 Clinic First Screen: Sean Jung Specimen: MEDICAL PHYSICS TEACHER ThinPrep Vial Screening, Cervical 03/21/2024 4:27 PM CDT [facility] INTERPRETATION/ RESULT NEGATIVE FOR INTRAEPITHELIAL LESION OR MALIGNANCY (NIL) (none) 03/21/2024 4:27 PM CDT [facility] at 1627 CDT ORGANISM(S) Fungal organisms morphologically consistent with Alejandra species 03/21/2024 4:27 PM CDT [facility] SPECIMEN ADEQUACY Satisfactory for evaluation Endocervical component present 03/21/2024 4:27 PM CDT [facility] Date of LMP see Epic 03/21/2024 4:27 PM CDT [facility] Last Pap Date First Pap 03/21/2024 4:27 PM CDT [facility] Last Pap Result First Pap/Unknown 4:27 PM CDT [facility] Abnormal Pap or [place] Bx in last 5 years No 03/21/2024 4:27 PM CDT [facility] Menstrual Status Regular Periods 03/21/2024 4:27 PM CDT [facility] [place] Bx Done Today No 03/21/2024 4:27 PM CDT [facility] Additional Information None given 03/21/2024 4:27 PM CDT [facility] Comment: Cytology is screened at [facility], Central Laboratory - [address], [place] [address] and [facility] - [address], [place] [address] and [facility] - [address] [place] [address] Interpreted at [facility] - [address], [place] [address] Automated Review Successful 03/21/2024 4:27 PM CDT [facility] Comment:Specimen processed s uccessfully by automated faculty research physician device, ThinPrep Imaging System, [employer] Note The pap test is a [...] and malignant lesions. 03/21/2024 4:27 PM CDT [facility] Other (Cervical) Non-Blood / Unknown 03/09/2024 3:40 PM CDT 03/09/2024 3:40 PM CDT Estefanía Reyes NP PATHOLOGY/CYTOLOGY Final Result Performing Organization Address [facility] Co de Phone Number [facility] [address] [place] [address], [place] * ANTI HCV (03/09/2024 3:32 PM CDT) Pathologist [facility] HEPATITIS C ANTIBODY Non-Reacti ve Non-React emma 03/10/2024 1:19 AM CDT [facility] Comment:Please note, per www .CDC.gov: [...] OUTS Final Res ult Performing Organization Address [facility] Co de Phone Number [facility] [address] [place] [address], [place] * ANTI HIV 1/2 (03/09/2024 3:32 PM CDT) Pathologist [facility] HIV-1/HIV-2 SCREEN Non-Reacti ve Non-Reacti ve 03/09/2024 11:39 PM CDT [facility] Comment:HIV-1 p24 and HIV-1/ HIV-2 Ab Not Detected. Blood BLOOD SPECIMEN / Unknown Venipuncture / Unknown 03/09/2024 3:32 PM CDT 03/09/2024 3:32 PM CDT us Estefanía Reyes METAL DOOR ASSEMBLER SEND OUTS Final Res ult [facility] [address] [place] [address], [place] from Last 3 Months or Most Recently Relevant to Health Maintenance Care Teams Patternmaker Hand Relationship Specialty Start Date End Date Clinic, No Pcp Or . PCP - General 06/09/21
--- OUTSIDE RECORDS SUMMARY | 2025-08-20 09:47 | XMS_ITS | Encounter Summary ---
Author Organization [facility] Address [address] [place] [address] Care Team Providers Care Information Services Tech Name Role Phone Lynsey Hong MD Primary Care Provider [phone] Encounter Details Date Type Department Care Team (Late st Contact Info) Description 01/14/2014 Scanned History External to External, Provider No address [address] [place] Social History Tobacco Use Types [...] on filedocumented in this encounter Care Teams Information Services Tech Relationship Specialty Start Date End Date Lynsey Hong MD [address] [place] [address] PCP - General Pediatric Medicine 05/15/13 documented as of this encounter
--- OUTSIDE RECORDS SUMMARY | 2025-08-20 09:47 | XMS_ITS | Clinical Summary ---
Author Organization [facility] Address [address] [place] [address] Care Team Providers Care Smoked Meat Preparer Name Role Phone Shankar, Milady Ramey Primary [...] 2018 HEPATITIS C SCREENING 2020 PAP 2023 DTAP/TDAP/TD VACCINE (7 - Td or Tdap) 06/27/2024 06/27/2014, 12/28/2007, 02/12/2004, Additional history exists PHQ-2 (once per calendar year) 2024 COVID-19 VACCINE ( season) 2025 INFLUENZA VACCINE (#1) 2025 4, 08/01/2012, 12/07/2006, [...] Completed 12/26/2014, 11/0 01/2014, 06/27/2014 Care Teams Smoked Meat Preparer Relationship Specialty Start Date End Date [facility], [place] [address] [place] [address] PCP - General 06/20/21
--- OUTSIDE RECORDS SUMMARY | 2025-08-20 09:47 | XMS_ITS | Encounter Summary ---
Author Organization [facility] Address [address] [place] [address] Care Team Providers Care Senior Business Development Analyst Name Role Phone Lynsey Hong MD Primary Care Provider [phone] Encounter Details Date Type Department Care Team (Late st Contact Info) Description 2002 Hospital External to Unknown, Physician [address] [place] [address] /MATERNAL ASSESSMENT Social History Tobacco Use Types [...] on file documented as of this encounter Mental Status * Head Circumference Answer Entry Date Author 15.87 01/24/2003 1:20 PM CDT Tiana Teague MD documented in this encounter Progress Notes * Unknown, Physician - 2002 12:00 AM PRESS CLIPPER documented in this encounter Plan of Treatment Not on file documented as of this encounter Visit Diagnoses Not on filedocumented in this encounter Care Teams Senior Business Development Analyst Relationship Specialty Start Date End Date Lynsey Hong MD [address] [place] [address] PCP - General Pediatric Medicine 05/15/13 documented as of this encounter
[2025-08-20 09:52] VITALS: BP 135/85; PULSE 79; RESP 20; TEMP 36.5; O2SAT 99; BMI 29.0
--- NOTE | 2025-08-20 11:09 | ED_ITS ---
HPI - General Adult General Date Seen: 08/20/25 Chief complaint: Neck Injury/Pain Stated complaint: neck pain Time Seen by Provider: 08/20/25 10:17 History of Present Illness HPI narrative: Patient is a 24-year-old, generally healthy young woman who presents with her mom for evaluation of right-sided neck pain which started this morning while she was at work. She says symptom onset was pretty sudden, she does not remember any specific injury and denies any recent trauma. She has pain along the right side of her neck. She is not able to turn her head and it is painful to lift her head as well. She has not had any sore throat or ear pain, fevers, no other neurologic complaints. Tried some ibuprofen at home. Related Data Home Medications ?Medication ?Instructions ?Recorded ?Confirmed sertraline 150 mg capsule 150 mg PO DAILY 03/10/2409/03 Previous Rx's ?Medication ?Instructions ?Recorded diazepam 5 mg tablet (Valium) 5 mg PO QHS PRN #7 tabs 08/20/25 Allergies Allergy/AdvReac Type Severity Reaction Status Date / Time amoxicillin AdvReac Severe throat Verified 05/15/25 21:49 closing Review of Systems Status of ROS: Reports: 10 or more systems reviewed and unremarkable except as noted in History and below PFSH [facility] Social History Smoking Status: Never smoker Do you use any of these nicotine containing products: None Second hand tobacco smoke exposure: No How often do you have a drink containing alcohol: monthly or less How often do you have six or more drinks on one occasion: Never AUDIT-C Alcohol total score: 1 Non-prescribed substance use: denies use service: No Exam Narrative: Exam Narrative: Vital signs reviewed In general, an alert, nontoxic young woman. She is holding her head cocked to the left side. Head: Normocephalic, atraumatic. Eyes: Sclera clear. Pupils equal and reactive. ENT: Mucous membranes moist. Throat is normal. TMs are normal bilaterally. Neck: She has reproducible tenderness and spasm along the right paracervical musculature. Less so into the trapezius. Range of motion is limited secondary to pain. She has no anterior neck tenderness, no masses, no adenopathy. Heart: Regular rate and rhythm without murmur. Lungs: Clear. No increased work of breathing, crackles or wheezes. Extremities: Well perfused, pulses intact. No significant edema. Neurologic: Alert, conversant. Speech fluent, face symmetric. Moves all extremities equally. Skin: Warm, dry well perfused. Affect: Normal. Const: Vital Signs, click to edit/add: Vital Signs - 24 hr 08/20/25 09:52 Temperature 97.7 F Pulse Rate [Pulse Oximeter] 79 Respiratory Rate 20 Blood Pressure [Ri ght Upper Arm] 135/85 Pulse Oximetry 99 Oxygen Delivery Me thod Room Air Course Course ED Course: Presentation is most consistent with torticollis. I do not see anything on exam to suggest vascular injury, infection, or other acute cause. Discussed with her that this is usually due to muscle spasm. I gave her some Toradol, 5 mg of oral Valium. Will plan for discharge with home medications of ibuprofen 400 mg plus Tylenol a 1000 mg 3 times daily, heat, gentle stretching, recommend outpatient follow-up with primary care if not improving over the next few days, consideration of early physical therapy. Provided a small number of Valium for use primarily at night for muscle spasm. Return any time for worsening new symptoms such as fevers, radiating pain, neurologic changes. Vital Signs Vital signs: Initial Vital Signs Temperature 97.7 F 08/20/25 09:52 Temperature Source Oral 08/20/25 09:52 Pulse Rate 79 08/20/25 09:52 Respiratory Rate 20 08/20/25 09:52 Blood Pressure 135/85 08/20/25 09:52 Blood Pressure Mean 101 08/20/25 09:52 Blood Pressure Position Sitting 08/20/25 09:52 Pulse Oximetry 99 08/20/25 09:52 Oxygen Delivery Method Room Air 08/20/25 09:52 Vital Signs Temperature 97.7 F 08/20/25 09:52 Pulse Rate 79 08/20/25 09:52 Respiratory Rate 20 08/20/25 09:52 Blood Pressure 135/85 08/20/25 09:52 Pulse Oximetry 99 08/20/25 09:52 Oxygen Delivery Method Room Air 08/20/25 09:52 Temperature 97.7 F 08/20/25 09:52 Pulse Rate 79 08/20/25 09:52 Respiratory Rate 20 08/20/25 09:52 Blood Pressure 135/85 08/20/25 09:52 Pulse Oximetry 99 08/20/25 09:52 Oxygen Delivery Method Room Air 08/20/25 09:52 Medications Administered Medications: Discontinued Medications Generic Name Dose Route Start Last Admin Trade Name Alethea PRN Reason Stop Dose Admin Diazepam 5 mg 08/20/25 10:32 08/20/25 11:14 Diazepam 5 Mg Tablet PO 08/20/25 10:33 5 mg ONCE ONE Administration Ketorolac Tromethamine 30 mg 08/20/25 10:32 08/20/25 11:14 Ketorolac 30 Mg/Ml Inj IM 08/20/25 10:33 30 mg ONCE ONE Administration Discharge Plan Discharge Clinical Impression: Torticollis Patient Disposition: Home, Self-Care Condition: Stable Instructions: Spasmodic Torticollis (ED) Additional Instructions: As discussed, your symptoms are most likely due to muscle spasm in your neck. This can occur spontaneously and cause significant pain for a few days. It often takes up to couple of weeks to resolve completely. For pain control, I would recommend that you take ibuprofen 400 mg plus Tylenol 1000 mg 3 times a day with food for the next few days. I have also prescribed some Valium for you to use as a muscle relaxer, this will be most effective if taken at night. During the day it is likely to be very sedating. Use heat on your neck, do gentle stretching. If you do not feel you are making any progress over the next few days, please follow up with primary care. Early physical therapy may be indicated. Return to the ER at any time if you note any new symptoms such as radiating pain, weakness, high fevers, etcetera. I have you off work for the next couple of days so that you can rest. Prescriptions: New diazepam [Valium] 5 mg tablet 5 mg PO QHS PRNQty: 7 0RF No Action sertraline 150 mg capsule 150 mg PO DAILY Follow Up/Referrals: Estefanía Reyes, MARTI, BUSINESS MACHINES TEACHER [Primary Care Provider, Family Practice] [facility]: [facility] Instructions
== END 2025-08-20 11:24 | disposition home or self-care (01) ==
PROVIDERS: Emergency Provider Emergency Medicine; PCP Nurse Practitioner Family
DX: M43.6 Torticollis (principal)
CPT/HCPCS: 96372; 99283; 99284; J1885